=== PATIENT | male | born 1985 | race Caucasian/White ===

== ENCOUNTER 2016-08-26 07:58 | Emergency (ER) | payer OTHER ==
[2016-08-26] MEDS ORDERED: TOPICAL SKIN ADHESIVE 1 EACH AMP TOPICAL ONE (09:06)
--- NOTE | 2016-08-26 09:12 | ED ---
General Adult HPI - General Chief complaint: Wound/Laceration Stated complaint: Finger laceration/[facility] Time Seen by Provider: 08/26/16 08:58 Source: patient, RN notes reviewed Mode of arrival: ambulatory Limitations: no limitations - History of Present Illness Initial comments: Patient 31-year-old male who presents emergency room today with a chief complaint of an injury to the left index finger that occurred at work just prior to arrival. He does admit that he was sliding a piece of pipe when another bite with slit reports impinging his left index finger causing a laceration. He states his tetanus is within 10 years. He denies any other complaints or symptoms. Patient denies any recent fever, chills, shortness of breath, chest pain, back pain, abdominal pain, nausea or vomiting, numbness or tingling, dysuria or hematuria, constipation or diarrhea, headaches or visual changes, or any other complaints. - Related Data Previous Rx's Medication Instructions Recorded Cephalexin [Keflex] 500 mg PO Q12HR 7 Days 08/26/16 Allergies Allergy/AdvReac Type Severity Reaction Status Date / Time No Known Allergies Allergy Verified 08/26/16 08:17 Review of Systems ROS Statement: Those systems with pertinent positive or pertinent negative responses have been documented in the HPI. ROS Other: All systems not noted in ROS Statement are negative. Past Medical History Past Medical History: No Reported History History of Any Multi-Drug Resistant Organisms: None Reported Additional Past Surgical History / Comment(s): rhinoplasty Past Psychological History: No Psychological Hx Reported Smoking Status: Former smoker Past Alcohol Use History: Occasional Past Drug Use History: Marijuana General Exam - General Exam Comments Initial Comments: General: The patient is awake and alert, in no distress, and does not appear acutely ill. Neck: The neck is supple, there is no tenderness or JVD. Cardiovascular: There is a regular rate and rhythm. No murmur, rub or gallop is appreciated. Respiratory: Lungs are clear to auscultation, respirations are non-labored, breath sounds are equal. No wheezes, stridor, rales, or rhonchi. Musculoskeletal: Normal appearance of the left finger shows full range motion. Sensation intact. Pulses bilateral 2+. Strength 5/5. Neurological: A&O x 3. CN II-XII intact, There are no obvious motor or sensory deficits. Coordination appears grossly intact. Speech is normal. Skin: 1 cm linear laceration to the lateral aspect of the left index finger. No active bleeding. Psychiatric: Normal mood and affect. Limitations: no limitations Course Vital Signs 08/26/16 08:03 Temperature 97.7 F Pulse Rate 73 Respiratory 17 Rate Blood Pressure 132/76 O2 Sat by Pulse 97 Oximetry Medical Decision Making - Medical Decision Making Patient's x-ray reviewed shows no acute fracture or dislocation. Results were discussed with the patient. Patient laceration cleaned here in the emergency room irrigated with saline closed with Dermabond. Patient tolerated well. Patient will be covered with antibiotic. Advised to watch for signs of infection return for any other concerns. Disposition Clinical Impression: Laceration Disposition: HOME SELF-CARE Condition: Good Instructions: Laceration (ED) Additional Instructions: Please allow the glue to fall off on its own over the next 3-5 days. Please watch for any signs of infection which may include increased pain, swelling, redness, fever or chills. Please return to emergency room for any signs of infection or any other concerns as discussed. Prescriptions: Cephalexin [Keflex] 500 mg PO Q12HR 7 Days Time of Disposition: 10:14
--- NOTE | 2016-08-26 10:03 | XR ---
EXAMINATION TYPE: XR finger LT DATE OF EXAM: 08/26/2016 9:55 AM COMPARISON: NONE HISTORY: Pain crush injury index finger TECHNIQUE: 3 views index finger left FINDINGS: No acute fractures are evident. Joint spaces are preserved. Soft tissues appear normal. IMPRESSION: 1. Normal three-view left index finger. 2. Follow-up exam can be performed 7-10 days from acute trauma for continued pain.
[2016-08-26 10:28] VITALS: BP 140/80; PULSE 77; RESP 16; TEMP 97.8
== END 2016-08-26 10:36 | disposition home or self-care (01) ==
LOC: EC 07:58
DX: S61.211A Laceration without foreign body of left index finger without damage to nail, initial encounter (principal); Z87.891 Personal history of nicotine dependence; W45.8XXA Other foreign body or object entering through skin, initial encounter; Y93.89 Activity, other specified; Y99.0 Civilian activity done for income or pay
CPT/HCPCS: 12001; 99283